=== PATIENT | male | born 1955 | race Caucasian/White ===

== ENCOUNTER 2023-04-27 18:09 | Outpatient (CLI) | payer MEDICARE, SELFPAY ==
[2023-04-27 12:37] LABS: BUN 45 mg/dL (7-18); CREATININE 3.4 mg/dL (0.70-1.30); Calcium 9.5 mg/dL (8.5-10.1); Chloride 104 mmol/L (98-107); Estimated GFR 18.88 (mL/min/1.73m2); Glucose 91 mg/dL (74-106); Potassium 4.3 mmol/L (3.5-5.1); Sodium 144 mmol/L (136-145)
== END 2023-04-27 18:10 | disposition home or self-care (01) ==
LOC: LBO 18:12
DX: Z51.81 Encounter for therapeutic drug level monitoring (principal)
CPT/HCPCS: 36415; 80048

== ENCOUNTER 2023-07-08 03:44 | Outpatient (CLI) | payer MEDICARE, SELFPAY ==
[2023-07-08 13:47] LABS: Anion Gap 6.4 mmol/L (3-11); BUN 28 mg/dL (7-18); CO2 25.6 mmol/L (21.0-32.0); CREATININE 2.3 mg/dL (0.70-1.30); Calcium 9.1 mg/dL (8.5-10.1); Chloride 108 mmol/L (98-107); Estimated GFR 29.99 (mL/min/1.73m2); Glucose 100 mg/dL (74-106); Potassium 4.1 mmol/L (3.5-5.1); Sodium 140 mmol/L (136-145)
== END 2023-07-08 03:45 | disposition home or self-care (01) ==
DX: N18.32 Chronic kidney disease, stage 3b (principal)
CPT/HCPCS: 36415; 80048